=== PATIENT | female | born 1980 | race Caucasian/White ===

== ENCOUNTER 2019-12-08 02:40 | Emergency (ER) | payer MEDICAID ==
[~2019-12-08] VITALS: Ht 165.1 cm; Wt 59.0 kg
[2019-12-08 03:05] VITALS: Ht 165.1 cm; Wt 59.0 kg
[2019-12-08 03:50] LABS: BASOPHIL % 0.4 % (0-2); PLATELET COUNT 321 x10^3mcL (130-400)
[2019-12-08 04:02] LABS: CALCIUM 8.7 mg/dL (8.5-10.1); CARBON DIOXIDE 26.9 mmol/L (21-32); CHLORIDE SERUM 101 mmol/L (98-107); CREATININE SERUM 0.9 mg/dL (0.6-1.0); GFR1 > 60 mL/min; GLUCOSE SERUM 247 mg/dL (74-106); POTASSIUM SERUM 3.3 mmol/L (3.5-5.1); SODIUM SERUM 134 mmol/L (136-145)
[2019-12-08 04:08] LABS: ALBUMIN 3.2 g/dL (3.4-5.0); ALKALINE PHOSPHATASE 114 U/L (46-116); ALT/SGPT 30 U/L (14-59); AST/SGOT 24 U/L (15-37); BILIRUBIN TOTAL 0.3 mg/dL (0.20-1.00); TOTAL PROTEIN, SERUM 7.7 g/dL (6.4-8.2)
[2019-12-08 05:35] VITALS: BP 113/63
== END 2019-12-08 05:35 | disposition home or self-care (01) ==
LOC: ED 02:40
PROVIDERS: Emergency Medicine
DX: G93.41 Metabolic encephalopathy (principal); E11.649 Type 2 diabetes mellitus with hypoglycemia without coma
CPT/HCPCS: 82962; J3490; Q0092

== ENCOUNTER → 2019-12-30 | Outpatient (CLI) | payer MEDICAID ==
[2019-12-30 15:24] LABS: BASOPHIL % 1.1 % (0-2); PLATELET COUNT 294 x10^3mcL (130-400)
[2019-12-30 15:25] LABS: RED CELL DISTRIBUTION WIDTH 14.9 % (11.5-14.5)
[2019-12-30 16:04] LABS: ALKALINE PHOSPHATASE 71 U/L (46-116); ALT/SGPT 16 U/L (14-59); AST/SGOT 16 U/L (15-37); BILIRUBIN TOTAL 0.3 mg/dL (0.20-1.00); CALCIUM 8.8 mg/dL (8.5-10.1); CARBON DIOXIDE 24.4 mmol/L (21-32); CHLORIDE SERUM 101 mmol/L (98-107); CHOLESTEROL 175 mg/dL (<200); GFR1 > 60 mL/min; GLUCOSE SERUM 411 mg/dL (74-106); HDL CHOLESTEROL 59 mg/dL (40-60); POTASSIUM SERUM 3.9 mmol/L (3.5-5.1); SODIUM SERUM 133 mmol/L (136-145); TOTAL PROTEIN, SERUM 7.3 g/dL (6.4-8.2); TRIGLYCERIDES 110 mg/dL (<150)
[2019-12-30 16:06] LABS: ALBUMIN 3.3 g/dL (3.4-5.0)
== END | disposition home or self-care (01) ==
LOC: LB 15:07
DX: H53.8 Other visual disturbances (principal)